=== PATIENT | female | born 1945 | race Caucasian/White ===

== ENCOUNTER 2016-10-29 11:03 | Emergency (ER) | payer MEDICARE, OTHER ==
[2016-10-29 11:12] VITALS: BP 159/69
--- NOTE | 2016-10-29 11:55 | ED Physician Documentation ---
PD HPI DYSPNEA - Stated complaint Stated Complaint: SOA - Chief complaint Chief Complaint: Resp - History obtained from History obtained from: Patient - History of Present Illness Timing - onset: How many days ago (5-6) Timing - onset during: Light activity Timing - details: Gradual onset, Still present (worsening) Inciting event(s): URI Improved by: Sitting up Worsened by: Laying flat, Coughing Associated symptoms: Fever, Cough, Wheezing. No: Hemoptysis, Chest pain / discomfort, Bilateral edema Similar symptoms before: Diagnosis (pneumonia/bronchitis) Recently seen: Not recently seen Review of Systems Constitutional: reports: Fever, Chills, Myalgias Nose: reports: Congestion Throat: denies: Sore throat Cardiac: denies: Chest pain / pressure Respiratory: reports: Dyspnea, Cough (mildly productive but wet sounding), Wheezing GI: denies: Vomiting (almost vomiting with coughing hard), Diarrhea Skin: denies: Rash, Lesions Musculoskeletal: denies: Joint swelling PD PAST MEDICAL HISTORY - Past Medical History Past Medical History: Yes Cardiovascular: Hypertension Respiratory: Pneumonia (few times in the past) Other Past Medical History: spinal stenosis, tachycardia, - Past Surgical History Past Surgical History: Yes General: Appendectomy - Present Medications Home Medications: Ambulatory Orders Medication Instructions Recorded Confirmed Albuterol Sulfate [Proair Hfa 2 puffs IH QID #1 hfa.aer.ad 10/29/16 Inhaler] Dexamethasone [Decadron] 4 mg PO DAILY #5 tablet 10/29/16 Doxycycline Hyclate 100 mg PO BID #14 tablet 10/29/16 Estrogen,Con/M-Progest Acet 1 tab PO DAILY 10/29/16 10/29/16 [Premphase 0.625-5 mg Tablet] Levothyroxine [Synthroid] 75 mcg PO DAILY 10/29/16 10/29/16 Metoprolol Tartrate 25 mg PO DAILY 10/29/16 10/29/16 Oxycodone HCl 5 mg PO DAILY 10/29/16 10/29/16 guaiFENesin/CODEINE [Robitussin AC] 10 ml PO Q6H PRN #240 ml 10/29/16 - Allergies Allergies/Adverse Reactions: Allergies Allergy/AdvReac Type Severity Reaction Status Date / Time No Known Drug Allergies Allergy Verified 10/29/16 11:08 - Social History Does the pt smoke?: No Smoking Status: Never smoker Does the pt drink ETOH?: No Does the pt have substance abuse?: No PD ED PE NORMAL - Vitals Vital signs reviewed: Yes - General General: Alert and oriented X 3, Well developed/nourished - HEENT HEENT: Ears normal, Pharynx benign - Neck Neck: Supple, no meningeal sign, No adenopathy - Cardiac Cardiac: RRR, No murmur - Respiratory Respiratory: No: Clear bilaterally (no coarse sounds; some scattered wheezing. Repetitve wet sounding bronchial cough. ) - Abdomen Abdomen: Soft, Non tender - Derm Derm: Normal color, Warm and dry - Extremities Extremities: No edema, No calf tenderness / cord Results - Vitals Vitals: Vital Signs - 24 hr 10/29/16 10/29/16 11:07 12:20 Temperature 36.8 C Heart Rate 84 71 Respiratory 20 18 Rate Blood Pressure 159/69 H O2 Saturation 98 Oxygen O2 Source Room air - Rads (name of study) chest Radiology: Prelim report reviewed (possible small infiltrate in apex of lung. ) PD MEDICAL DECISION MAKING - ED course Complexity details: reviewed results, re-evaluated patient (Feels much better and less cough with neb treatment. ), considered differential (congested cough with possible small infiltrate in top of lung per Rad. Likely viral but consider bacterial. ), d/w patient Departure - Departure Disposition: 01 Home, Self Care Clinical Impression: Upper respiratory infection Qualifiers: URI type: unspecified URI Qualified Code(s): J06.9 - Acute upper respiratory infection, unspecified Condition: Stable Record reviewed to determine appropriate education?: Yes Instructions: ED Upper Resp Infec Abx Tx Prescriptions: Dexamethasone [Decadron] 4 mg PO DAILY #5 tablet Doxycycline Hyclate 100 mg PO BID #14 tablet Albuterol Sulfate [Proair Hfa Inhaler] 2 puffs IH QID #1 hfa.aer.ad guaiFENesin/CODEINE [Robitussin AC] 10 ml PO Q6H PRN #240 ml PRN Reason: Cough Comments: Use the albuterol inhaler 2 puffs 4 times a day for the next 7-10 days. Use extra puffs if needed for wheezing and cough. Decadron daily for 5 more days for inflammation of the bronchioles. Doxycycline twice a day for a week for the infection though this may be viral rather than bacterial. Use cough medicine as needed. Once you are feeling better the cough to some degree may persist for 2-3 more weeks. Discharge Date/Time: 10/29/16 12:56
--- NOTE | 2016-10-29 11:58 | XRAY Preliminary Report ---
Exam: XR Chest 2 View PA/LAT IMPRESSION: Image artifact versus small opacity in the superior perihilar area of the right upper lob e, focal infiltrate cannot be excluded; chest x-ray of 2 views follow-up in 5 weeks of recommended. [facility] SITE ID: [id number]
--- NOTE | 2016-10-29 12:00 | XRAY Report ---
EXAM: CHEST RADIOGRAPHY EXAM DATE: 10/29/2016 11:44 AM. CLINICAL HISTORY: Productive cough for several days. COMPARISON: None. TECHNIQUE: 2 views. FINDINGS: Lungs/Pleura: Focal small ill-defined opacity in the medial right upper chest of the right upper ruby hilar area superimposed with the right first rib cartilage visualized; otherwise, no discrete focal o pacities evident. No pleural effusion. No pneumothorax. Mediastinum: Heart and mediastinal contours are unremarkable. Other: Multilevel mild to moderate degenerative disk disease in the upper mid thoracic spine. IMPRESSION: Image artifact versus small opacity in the superior perihilar area of the right upper lob e, focal infiltrate cannot be excluded; chest x-ray of 2 views follow-up in 5 weeks of recommended. [facility] Referring Provider Line: [phone] SITE ID: [id number]
[2016-10-29] MEDS ORDERED: DEXAMETHASONE 10 MG/ML VIAL PO STA (12:19)
[2016-10-29] MEDS ORDERED: ALBUTEROL NEB 2.5 MG/3 ML INH STA (12:19)
[2016-10-29] MEDS ORDERED: BENZONATATE 100 MG CAPSULE PO STA (12:19)
[2016-10-29] MEDS ORDERED: guaiFENesin/CODEINE 5 ML UDC PO STA (12:19)
[2016-10-29] MEDS ORDERED: guaiFENesin/CODEINE 5 ML UDC ONE (12:24)
[2016-10-29] MEDS ORDERED: BENZONATATE 100 MG CAPSULE PO ONE (12:24)
[2016-10-29] MEDS ORDERED: DEXAMETHASONE 10 MG/ML VIAL ONE (12:24)
[2016-10-29] MEDS ORDERED: CHERRY SYRUP 10 ML UDC PO ONE (12:24)
[2016-10-29] MEDS ORDERED: ALBUTEROL NEB 2.5 MG/3 ML INH ONE (12:28)
== END 2016-10-29 12:56 | disposition home or self-care (01) ==
LOC: ED 11:03
DX: J06.9 Acute upper respiratory infection, unspecified (principal); I10 Essential (primary) hypertension
CPT/HCPCS: 71020; 94640; 99283; A9270; J7613

== ENCOUNTER 2017-07-13 09:11 | Outpatient (CLI) | payer MEDICARE | END 2017-07-13 09:12 | disposition home or self-care (01) | LOC: LAB 09:11 | PROVIDERS: ATTEND Urology | DX: R30.0 Dysuria (principal); N30.10 Interstitial cystitis (chronic) without hematuria | CPT/HCPCS: 87086 ==

== ENCOUNTER 2018-02-03 11:04 | Emergency (ER) | payer MEDICARE ==
[2018-02-03 11:12] VITALS: BP 140/52
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
[2018-02-03] MEDS ORDERED: DEXAMETHASONE 10 MG/ML VIAL PO STA (12:04)
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
== END 2018-02-03 14:16 | disposition home or self-care (01) ==
LOC: ED 11:04
DX: J45.21 Mild intermittent asthma with (acute) exacerbation (principal); M54.31 Sciatica, right side; I10 Essential (primary) hypertension; Z87.01 Personal history of pneumonia (recurrent)
CPT/HCPCS: 99283

== ENCOUNTER 2018-05-17 15:09 | Outpatient (CLI) | payer MEDICARE | END 2018-05-17 15:10 | disposition critical access hospital (66) | LOC: EMS 15:09 | PROVIDERS: ATTEND Surgery | DX: M25.511 Pain in right shoulder (principal); V57.6XXA Passenger in pick-up truck or van injured in collision with fixed or stationary object in traffic accident, initial encounter; Y92.413 State road as the place of occurrence of the external cause | CPT/HCPCS: A0425; A0427 ==

== ENCOUNTER 2018-05-17 15:35 | Emergency (ER) | payer OTHER, MEDICARE ==
[2018-05-17] MEDS ORDERED: HYDROmorphone 1 MG/ML CARPUJECT IVP STA ×2 (15:42→17:09)
[2018-05-17] MEDS ORDERED: LORazepam 2 MG/ML VIAL IVP STA ×2 (15:42→21:29)
[2018-05-17 15:57] LABS: BASOPHILS # (AUTO) 0.1 10^3/uL (0.0-0.1); BASOPHILS % (AUTO) 0.8 %; EOSINOPHILS # (AUTO) 0.1 10^3/uL (0.0-0.7); EOSINOPHILS % (AUTO) 1.2 %; HGB - HEMOGLOBIN 13.9 g/dL (12.0-16.0); LYMPHOCYTES # (AUTO) 1.4 10^3/uL (1.5-3.5); LYMPHOCYTES % (AUTO) 13.4 %; MEAN CORPUSCULAR HEMOGLOBIN 30.6 pg (27.0-31.0); MEAN CORPUSCULAR HGB CONC 32.6 g/dL (32.0-36.0); MEAN CORPUSCULAR VOLUME 93.6 fL (81.0-99.0); MEAN PLATELET VOLUME 8.7 fL (7.9-10.8); MONOCYTES # (AUTO) 0.6 10^3/uL (0.0-1.0); MONOCYTES % (AUTO) 5.4 %; NEUTROPHILS # (AUTO) 8.2 10^3/uL (1.5-6.6); NEUTROPHILS % (AUTO) 79.2 %; PLT - PLATELET COUNT 182 10^3/uL (130-450); RED BLOOD COUNT 4.54 10^6/uL (4.20-5.40); RED CELL DISTRIBUTION WIDTH 13.4 % (12.0-15.0); WHITE BLOOD COUNT 10.3 x10^3/uL (4.8-10.8)
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
[2018-05-17 16:06] LABS: ALBUMIN 3.8 g/dL (3.2-5.5); ALBUMIN/GLOBULIN RATIO 1.2 (1.0-2.2); BILIRUBIN,TOTAL 0.9 mg/dL (0.2-1.0); CALCIUM 9.1 mg/dL (8.5-10.3); CREATININE 1.1 mg/dL (0.4-1.0)
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
[2018-05-17] MEDS ORDERED: oxyCODONE 5 MG TABLET PO STA (20:49)
[2018-05-17] MEDS ORDERED: ONDANSETRON 4 MG/2 ML VIAL IVP STA (21:40)
[2018-05-17 21:58] VITALS: BP 132/75
== END 2018-05-17 21:59 | disposition home or self-care (01) ==
LOC: EDUNIT# → ED 15:35
DX: S12.601A Unspecified nondisplaced fracture of seventh cervical vertebra, initial encounter for closed fracture (principal); S22.019A Unspecified fracture of first thoracic vertebra, initial encounter for closed fracture; S42.301A Unspecified fracture of shaft of humerus, right arm, initial encounter for closed fracture; V49.50XA Passenger injured in collision with unspecified motor vehicles in traffic accident, initial encounter; I10 Essential (primary) hypertension
CPT/HCPCS: 36415; 70450; 71045; 72125; 73030; 80053; 83690; 85025; 96374; 96375; 96376; 99284; 99285; A9270; J1170; J2060

== ENCOUNTER 2018-05-18 12:47 | Outpatient (CLI) | payer MEDICARE | END 2018-05-18 12:48 | disposition short-term general hospital (02) | LOC: EMS 12:47 | PROVIDERS: ATTEND Surgery | DX: M54.2 Cervicalgia (principal) | CPT/HCPCS: A0425; A0427 ==

== ENCOUNTER 2018-11-11 10:22 | Emergency (ER) | payer MEDICARE, OTHER ==
--- NOTE | 2018-11-11 10:57 | ED Physician Documentation ---
History of Present Illness - Stated complaint Stated Complaint: CHEST CONGESTION - Chief complaint Chief Complaint: General - Additonal information Additional information: This is a 73-year-old female with history of frequent pneumonia who presents with chest congestion, sore throat, and some mild dyspnea which is been progressive for the last 5 days. Patient had sore throat and congestion with production of green sputum with her cough began around 5 days ago, this is been progressive. She continues to cough up green sputum, she denies any hemoptysis. No abdominal pain, nausea, vomiting. No chest pain, she does have a feeling of tightness with her breathing. She denies any history of blood clots. Review of Systems Constitutional: reports: Fatigue Ears: denies: Drainage/discharge Nose: reports: Congestion Throat: reports: Sore throat Cardiac: denies: Calf pain Respiratory: reports: Cough. denies: Hemoptysis GI: denies: Abdominal Pain Skin: denies: Rash Immunocompromised: denies: Immunocompromised PD PAST MEDICAL HISTORY - Past Medical History Past Medical History: Yes Cardiovascular: Hypertension Respiratory: Pneumonia Psych: Anxiety Musculoskeletal: Chronic back pain - Past Surgical History Past Surgical History: Yes General: Appendectomy - Present Medications Home Medications: Ambulatory Orders Medication Instructions Recorded Confirmed RX: Albuterol Sulfate [Proair Hfa 2 puffs IH QID #1 hfa.aer.ad 10/29/16 Inhaler] RX: Estrogen,Con/M-Progest Acet 1 tab PO DAILY 10/29/16 10/29/16 [Premphase 0.625-5 mg Tablet] RX: Levothyroxine [Synthroid] 75 mcg PO DAILY 10/29/16 10/29/16 RX: Metoprolol Tartrate 25 mg PO DAILY 10/29/16 10/29/16 RX: Oxycodone HCl 5 mg PO DAILY 10/29/16 10/29/16 Azithromycin [Zithromax] 250 mg PO DAILY #6 tablet 02/03/18 RX: Albuterol Sulf [Ventolin Hfa 1 - 2 puffs INH Q4HR PRN #1 inhaler 02/03/18 Inhaler] Oxycodone HCl/Acetaminophen 1 - 2 each PO Q6H PRN #20 tablet 05/17/18 [Percocet 5-325 mg Tablet] RX: Azithromycin [Zithromax] 0 mg PO DAILY #6 tablet 11/11/18 - Allergies Allergies/Adverse Reactions: Allergies Allergy/AdvReac Type Severity Reaction Status Date / Time No Known Drug Allergies Allergy Verified 11/11/18 10:36 - Social History Does the pt smoke?: No Smoking Status: Never smoker Does the pt drink ETOH?: No Does the pt have substance abuse?: No - POLST Patient has POLST: No PD ED PE NORMAL - Vitals Vital signs reviewed: Yes (unremarkable) - General General: Alert and oriented X 3 - HEENT HEENT: PERRL - Neck Neck: Supple, no meningeal sign - Cardiac Cardiac: RRR - Respiratory Respiratory: Other (Rhonchorous breath sounds diffusely, worse on the right upper lung machuca) - Abdomen Abdomen: Soft, Non distended - Derm Derm: Warm and dry, No rash - Extremities Extremities: Other (Right arm in sling ) - Neuro Neuro: Alert and oriented X 3 - Psych Psych: Normal mood, Normal affect Results - Vitals Vitals: Vital Signs - 24 hr 11/11/18 11/11/18 10:31 12:08 Temperature 36.8 C Heart Rate 63 61 Respiratory 18 16 Rate Blood Pressure 131/60 H 101/52 L O2 Saturation 100 98 Oxygen O2 Source Room air - Rads (name of study) CXR Radiology: Final report received PD MEDICAL DECISION MAKING - ED course Complexity details: considered differential (Pneumonia, bronchitis,, pharyngitis) ED course: On exam patient has some rhonchorous breath sounds is coughing up green sputum. Her vital signs are unremarkable. She has a history of recurrent pneumonia, chest x-ray is obtained and showed no acute abnormality. She states that when she has had the symptoms in the past she is usually progressed to pneumonia requiring treatment with antibiotics. I discussed that she likely has a viral URI, and that the mainstay of her treatment should be supportive care with fluids, rest, and she may take bnrz-dig-kqxrfom analgesics. Given her history of multiple pneumonias with similar symptoms, Which have responded to a zithromycin in the past, I did prescribe her a pack. She has no chest pain, her symptoms are consistent with an infectious process, highly doubt ACS. I recommended follow-up with primary care provider, and return to emerge department with any worsening symptoms. Patient agreed and was discharged home in the care of her . Departure - Departure Disposition: 01 Home, Self Care Clinical Impression: Upper respiratory infection Condition: Stable Instructions: ED Upper Resp Infec Abx Tx Follow-Up: AMY GUARDADO MD [Primary Care Provider] - Within 1 week Prescriptions: RX: Azithromycin [Zithromax] 0 mg PO DAILY #6 tablet Comments: You were seen today for cough, chest congestion, sore throat. Your chest x-ray does not show signs of a focal pneumonia, you likely have a bronchitis. Please take the azithromycin as prescribed, and check with your surgeon and anesthesiologist before surgery, given this infection they may want to delay her surgery. Return to the emergency department if you have any worsening symptoms. Discharge Date/Time: 11/11/18 12:13
--- NOTE | 2018-11-11 11:45 | XRAY Report ---
Reason: cough Procedure Date: 11/11/2018 Accession Number: [id number] / [id number] Procedure: XR - Chest 2 View X-Ray CPT Code: 56196 FULL RESULT: EXAM: CHEST RADIOGRAPHY EXAM DATE: 11/11/2018 11:24 AM. CLINICAL HISTORY: Cough. COMPARISON: CHEST 1 VIEW 05/17/2018 3:49 PM. TECHNIQUE: 2 views. FINDINGS: Lungs/Pleura: No focal opacities evident. No pleural effusion. No pneumothorax. Normal volumes. Mediastinum: Heart and mediastinal contours are unremarkable. Other: Diffuse degenerative disk disease is present throughout the thoracic spine. Right humerus fracture is not seen on current radiograph. IMPRESSION: 1. No acute pulmonary process. RADIA
[2018-11-11 12:11] VITALS: BP 101/52
== END 2018-11-11 12:13 | disposition home or self-care (01) ==
LOC: ED 10:22
DX: J06.9 Acute upper respiratory infection, unspecified (principal); I10 Essential (primary) hypertension; Z87.01 Personal history of pneumonia (recurrent)
CPT/HCPCS: 71046; 99283; 99284

== ENCOUNTER 2021-07-06 21:57 | Outpatient (CLI) | payer MEDICARE | END 2021-07-06 21:58 | disposition EMS.NT | LOC: EMS 21:57 | DX: R10.9 Unspecified abdominal pain (principal) ==

== ENCOUNTER 2021-08-18 02:40 | Outpatient (CLI) | payer MEDICARE | END 2021-08-18 02:41 | disposition left against medical advice (07) | LOC: EMS 02:40 | DX: M54.2 Cervicalgia (principal); R51.9 Headache, unspecified ==

== ENCOUNTER 2021-12-11 01:40 | Outpatient (CLI) | payer MEDICARE | END 2021-12-11 01:41 | disposition EMS.NT | LOC: EMS 01:40 | DX: Z03.89 Encounter for observation for other suspected diseases and conditions ruled out (principal) ==

== ENCOUNTER 2021-12-12 08:43 | Outpatient (CLI) | payer MEDICARE | END 2021-12-12 08:44 | disposition critical access hospital (66) | LOC: EMS 08:43 | DX: M54.50 Low back pain, unspecified (principal); R51.9 Headache, unspecified; R32 Unspecified urinary incontinence; R30.9 Painful micturition, unspecified; R26.2 Difficulty in walking, not elsewhere classified; W06.XXXA Fall from bed, initial encounter; Y92.003 Bedroom of unspecified non-institutional (private) residence as the place of occurrence of the external cause; Z98.890 Other specified postprocedural states | CPT/HCPCS: A0425; A0429 ==

== ENCOUNTER 2021-12-12 09:11 | Emergency (ER) | payer MEDICARE ==
[2021-12-12] MEDS ORDERED: KETOROLAC 15 MG/ML VIAL IVP STA (09:27)
[2021-12-12] MEDS ORDERED: HYDROmorphone 2 MG/ML VIAL IVP STA ×2 (09:27→11:44)
--- NOTE | 2021-12-12 09:28 | ED Physician Documentation ---
PD HPI BACK PAIN - Stated complaint Stated Complaint: GLF - Chief complaint Chief Complaint: Trauma Ch/Bk - History obtained from History obtained from: Patient, EMS - History of Present Illness Timing - onset: How many days ago (had lumbar surgery 6 days ago and was in hospital until 2 days ago. was on Dilaudid IV in hospital. Rx Oxycodone 15 mg Q4H and not sufficient for the pain, joanne the past 2 days. Pain with ROM.) Timing - duration: Days Timing - details: Abrupt onset (had chronic low back pain pre=op for long time and was on oxycodone 10 mg 4 times daily. Increased Rx to 15 mg q4h PRN postop. Patient says severe pain with sitting/walking with walker.) Location: Lower, Right, Left Quality: Pain, Sharp, Aching Associated symptoms: Unable to urinate (was having feeling of full bladder and having pain with sitting on toilet and getting up to standing/ using walker.). No: Fever, Weakness, Numbness Improves with: Position. No: Rest Worsened by: Movement, Twisting. No: Palpation Contributing factors: Twisting, Other (lumbar surgery 6 days ago. Was having pain in hospital and worse since discharge 2 days ago. No fevers, focal weakness, wound drainage.). No: Anticoagulated Recently seen: Surgery Review of Systems Constitutional: denies: Fever, Chills Nose: denies: Rhinorrhea / runny nose, Congestion Throat: denies: Oral lesions / sores, Sore throat Cardiac: denies: Chest pain / pressure Respiratory: denies: Dyspnea, Cough GI: reports: Abdominal Pain, Nausea, Constipation. denies: Abdominal Swelling, Vomiting, Diarrhea, Hematemesis : reports: Unable to Void (having difficulty emptying, with feeling of bladder cramping when uriating.). denies: Dysuria, Frequency Skin: denies: Rash, Lesions Musculoskeletal: reports: Back pain. denies: Neck pain, Extremity swelling Neurologic: reports: Headache. denies: Focal weakness, Numbness, Altered mental status, Head injury PD PAST MEDICAL HISTORY - Past Medical History Cardiovascular: Hypertension Respiratory: Pneumonia Psych: Anxiety Musculoskeletal: Chronic back pain - Past Surgical History Past Surgical History: Yes General: Appendectomy - Present Medications Home Medications: Ambulatory Orders Medication Instructions Recorded Confirmed Estrogen,Con/M-Progest Acet 1 tab PO DAILY 10/29/16 12/12/21 [Premphase 0.625-5 mg Tablet] Levothyroxine [Synthroid] 75 mcg PO DAILY 10/29/16 12/12/21 Metoprolol Tartrate 25 mg PO DAILY 10/29/16 12/12/21 Oxycodone HCl 5 - 15 mg PO Q4HR PRN 10/29/16 12/12/21 Acetaminophen [Acetaminophen Extra 500 mg PO QID PRN #40 tablet 12/12/21 Strength] Hydromorphone HCl [Dilaudid] 4 mg PO Q4H PRN #20 tablet 12/12/21 Lidocaine Patch 5% [Lidoderm Patch] 1 patch TOP DAILY PRN #10 patch 12/12/21 methocarbamoL [Methocarbamol] 750 mg PO QID 12/12/21 12/12/21 - Allergies Allergies/Adverse Reactions: Allergies Allergy/AdvReac Type Severity Reaction Status Date / Time No Known Drug Allergies Allergy Verified 12/12/21 09:16 - Social History Does the pt smoke?: No Smoking Status: Never smoker Does the pt drink ETOH?: No Does the pt have substance abuse?: No - POLST Patient has POLST: No PD ED PE NORMAL - Vitals Vital signs reviewed: Yes - General General: Alert and oriented X 3, Well developed/nourished, Other (appears in considerable pain. Moving legs around spontaneously. no redness of surgical site. ) - HEENT HEENT: Pharynx benign - Neck Neck: Supple, no meningeal sign, No adenopathy - Cardiac Cardiac: RRR, No murmur - Respiratory Respiratory: Clear bilaterally - Abdomen Abdomen: Soft, Non tender, Non distended, No organomegaly. No: Normal bowel sounds (diminished) - Female Female : Deferred - Rectal Rectal: Other (perirectal and inguinal areas with normal sensation to touch/pinprick. Has rectal tone. ) - Back Back: Other (surgical site lower back with yolanda in place. Nor redness nor discharge. 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 ) Eye Opening: Spontaneous Motor: Obeys Commands Verbal: Oriented GCS Score: 15 - Psych Psych: Normal mood Results - Vitals Vitals: Vital Signs - 24 hr 12/12/21 12/12/21 12/12/21 09:16 09:52 11:39 Temperature 37.6 C Heart Rate 89 93 82 Respiratory 18 16 14 Rate Blood Pressure 108/77 125/96 H 134/98 H O2 Saturation 98 99 94 12/12/21 12/12/21 13:00 15:00 Temperature 37.0 C Heart Rate 82 80 Respiratory 18 18 Rate Blood Pressure 125/50 L 120/60 O2 Saturation 94 94 Oxygen O2 Source Room air - Labs Labs: Laboratory Tests 12/12/21 12/12/21 12/12/21 09:39 09:39 10:35 WBC 8.1 RBC 2.88 L Hgb 9.0 L Hct 27.3 L MCV 94.8 MCH 31.3 H MCHC 33.0 RDW 13.2 Plt Count 243 MPV 9.9 Neut # (Auto) 6.3 Lymph # (Auto) 1.1 L [place] # (Auto) 0.7 Eos # (Auto) 0.0 Baso # (Auto) 0.0 Absolute Nucleated RBC 0.00 Nucleated RBC % 0.0 Sodium 139 Potassium 3.8 Chloride 101 Carbon Dioxide 28 Anion Gap 10.0 BUN 10 Creatinine 0.8 Estimated GFR (MDRD) 70 L Glucose 145 H Calcium 8.4 L Total Bilirubin 0.8 AST 22 ALT 12 Alkaline Phosphatase 64 Total Protein 6.2 L Albumin 3.0 L Globulin 3.2 Albumin/Globulin Ratio 0.9 L Lipase 21 L Urine Color YELLOW Urine Clarity SL. CLOUDY Urine pH 7.0 Ur Specific Bradley 1.015 Urine Protein NEGATIVE Urine Glucose (UA) NEGATIVE Urine Ketones 15 H Urine Occult Blood NEGATIVE Urine Nitrite NEGATIVE Urine Bilirubin NEGATIVE Urine Urobilinogen 0.2 (NORMAL) Ur Leukocyte Esterase TRACE H Urine RBC None Seen Urine WBC 6-10 H Ur Squamous Epith Cells MANY Squamous H Urine Bacteria Moderate H Ur Microscopic Review INDICATED Urine Culture Comments NOT INDICATED - Rads (name of study) lumbar/abd pelives Radiology: Prelim report reviewed (post-operative chnges, small fluid collection present. No displacement/fractures. ), See rad report PD MEDICAL DECISION MAKING - ED course Complexity details: reviewed results, re-evaluated patient (much more comfortable appearing after IV meds. ), considered differential (post operative pain. Was on chronic meds pre-op so presume needs higher dose meds.No signs of infection. Normal neuro in legs/perineum, so not seeming compressive from fluid/edema. ), d/w patient, d/w oracle database consultant (discussed with media production operator PA for the Neursurg service, who was familiar with the patient (while inpatient and for the discharge plan). Discussed either increasing oxycodone from 15 to 20 mg per dose q4h or change to PO dilaudid at comparable dose (4-6 mg per dose). Retention not spine/neuro if sensory.) Departure - Departure Disposition: Home, Self Care Clinical Impression: Postoperative back pain, Acute urinary retention Condition: Stable Record reviewed to determine appropriate education?: Yes Follow-Up: AMY GUARDADO MD [Primary Care Provider] - JENNIFER KAHN MD [Physician No Access] - Prescriptions: Acetaminophen [Acetaminophen Extra Strength] 500 mg PO QID PRN #40 tablet PRN Reason: Pain Hydromorphone HCl [Dilaudid] 4 mg PO Q4H PRN #20 tablet PRN Reason: Pain Lidocaine Patch 5% [Lidoderm Patch] 1 patch TOP DAILY PRN #10 patch PRN Reason: pain Comments: I talked with the on-call PA for the neurosurgery service who is familiar with you. She suggested that we could change from the oxycodone to oral Dilaudid 4 mg every 4 hours. Potentially could take up to 6 mg every 4 hours given your underlying tolerance that would have built up over time to the pain medicine. I would start at the 4 mg tablets. They wanted to ensure that you are taking the methocarbamol muscle relaxant regularly and that 750 mg 4 times a day. Also be sure to use the lidocaine patches over the area as directed to help with pain as well. They also would very much like you to be on acetaminophen/Tylenol 500 mg 4 times a day regularly. Regarding the inability to urinate, this most likely relates to the pain and pain medication causing an inability of the muscle at the bladder outlet to relax. For now would have you keep with the Zhang catheter to allow proper drainage. This should help with a lot of discomfort as well. Your primary care or urologist can reassess it after your back pain is improving and see if we can remove the catheter and have better output at that time. I transmitted prescriptions to [facility] in [place]. It does sound like they are open from 10-6 today. If you are unable to get the new prescriptions today, the neurosurgery PA did suggest you could increase your current oxycodone from 15 to 20 mg every 4 hours as an alternative. The neurosurgery office will call you tomorrow to see how you are doing and can reassess or change plans if needed. I transmitted your prescriptions to [facility] in [place]. I am prescribing a short course of narcotic pain medication for you. These are potentially dangerous and addictive medications that should be used carefully. These medications may constipate you. Take an hmpz-frj-lpsrbom stool softener such as docusate twice daily with plenty of water while taking these medications. If you go 24 hours without a bowel movement, take dmki-xen-luawwbh MiraLAX, per package instructions. Do not drink or drive while taking these medications. If you received narcotic or sedating medications while in the emergency department do not drive for 24 hours. Store this medication in a safe, secure place and out of reach of children. It is a violation of federal law to give or sell this medication to another person or to use in a manner other than prescribed. The ED will not refill narcotic prescriptions, including prescriptions lost or stolen. You can dispose of unwanted medications at the [facility]'s office or at several pharmacies such as [facility]. Discharge Date/Time: 12/12/21 15:15
[2021-12-12 09:44] LABS: BASOPHILS % (AUTO) 0.4 %; EOSINOPHILS % (AUTO) 0.4 %; HCT - HEMATOCRIT 27.3 % (37.0-47.0); LYMPHOCYTES # (AUTO) 1.1 10^3/uL (1.5-3.5); LYMPHOCYTES % (AUTO) 13.3 %; MEAN CORPUSCULAR HEMOGLOBIN 31.3 pg (27.0-31.0); MEAN CORPUSCULAR VOLUME 94.8 fL (81.0-99.0); MEAN PLATELET VOLUME 9.9 fL (7.9-10.8); MONOCYTES # (AUTO) 0.7 10^3/uL (0.0-1.0); MONOCYTES % (AUTO) 8.1 %; NEUTROPHILS # (AUTO) 6.3 10^3/uL (1.5-6.6); NEUTROPHILS % (AUTO) 77.2 %; PLT - PLATELET COUNT 243 10^3/uL (130-450); RED BLOOD COUNT 2.88 10^6/uL (4.20-5.40); RED CELL DISTRIBUTION WIDTH 13.2 % (12.0-15.0); WHITE BLOOD COUNT 8.1 x10^3/uL (4.8-10.8)
[2021-12-12 09:56] LABS: ALBUMIN/GLOBULIN RATIO 0.9 (1.0-2.2); BILIRUBIN,TOTAL 0.8 mg/dL (0.2-1.0); CALCIUM 8.4 mg/dL (8.5-10.3); CREATININE 0.8 mg/dL (0.4-1.0); POTASSIUM 3.8 mmol/L (3.5-5.0); TOTAL PROTEIN 6.2 g/dL (6.7-8.2)
[2021-12-12 10:39] LABS: BILIRUBIN,URINE NEGATIVE (NEGATIVE); GLUCOSE, URINE (UA) NEGATIVE (NEGATIVE); KETONES,URINE (UA) 15 mg/dL (NEGATIVE); LEUKOCYTE ESTERASE, URINE TRACE (NEGATIVE); NITRITE,URINE NEGATIVE (NEGATIVE); OCCULT BLOOD,URINE NEGATIVE (NEGATIVE); PROTEIN,URINE NEGATIVE (NEGATIVE); UROBILINOGEN,URINE 0.2 (NORMAL) E.U./dL (NORMAL)
[2021-12-12 10:42] LABS: CLARITY,URINE SL. CLOUDY (CLEAR)
[2021-12-12 10:43] LABS: BACTERIA,URINE Moderate /HPF (None Seen); RBC,URINE None Seen /HPF (0-5); SQUAMOUS EPITHELIAL CELL,UR MANY Squamous (<= Few)
--- NOTE | 2021-12-12 13:02 | CT Report ---
PROCEDURE: Abdomen/Pelvis WO INDICATIONS: back pain; post op TECHNIQUE: Noncontrast 5 mm thick sections acquired from the diaphragms to the symphysis. 5 mm coronal and sagi ttal reformats were then performed. For radiation dose reduction, the following was used: automated exposure control, adjustment of mA and/or kV according to patient size. COMPARISON: None. FINDINGS: Image quality: Excellent. ABDOMEN: Lung bases: Lung bases are clear. Heart size is normal. Solid organs: Liver and spleen are normal in size. Trace hyperdense sludge or tiny gallstones along the dependent portion of the gallbladder. No pericholecystic inflammatory changes. Pancreas is stuart l in contours. No adrenal nodules. Kidneys are normal in size, without hydronephrosis or nephrolith iasis. Peritoneum and bowel: A few diverticula are seen in the colon without signs of acute diverticulitis. No signs of small bowel obstruction. Trace hiatal hernia. No free fluid or air. Nodes and vessels: No retroperitoneal or mesenteric adenopathy by size criteria. Aorta and inferior vena cava are normal in caliber. Miscellaneous: No ventral hernias. PELVIS: Genitourinary: Bladder is decompressed by a Zhang catheter. Miscellaneous: No inguinal hernias or ad enopathy. Bones: Post surgical changes are seen from laminectomy and posterior fusion at L4-5 and L5-S1. The me tallic hardware appears to be intact. No acute osseous fracture is seen. Nonspecific soft tissue meli a and fluid are seen in the posterior subcutaneous tissues overlying the surgical site. No suspicious bony lesions. No vertebral body compression fractures. IMPRESSION: Postsurgical changes from recent laminectomies and posterior fusion extending from L4 through S1. Met allic hardware is intact. No acute osseous fracture identified. Adjacent soft tissue edema and fluid are nonspecific and may be postsurgical in nature. Reviewed by: Umair Segura MD on 12/12/2021 12:00 PM ARIANA Approved by: Umair Segura MD on 12/12/2021 12:00 PM [email or web address] Station ID: [id number]
[2021-12-12 15:15] VITALS: BP 120/60
== END 2021-12-12 15:15 | disposition home or self-care (01) ==
LOC: EDUNIT# → ED 09:11
DX: M54.50 Low back pain, unspecified (principal); R33.9 Retention of urine, unspecified; Z98.890 Other specified postprocedural states
CPT/HCPCS: 36415; 51702; 74176; 80053; 81001; 83690; 85025; 96374; 96375; 96376; 99284; J1170; 81003; 87086